=== PATIENT | female | born 1985 | race Hispanic/Latino ===

== ENCOUNTER 2017-11-06 09:46 | Emergency (ER) | payer BC ==
[2017-11-06 10:27] VITALS: RESP 18; TEMP 98.8; O2SAT 99
--- NOTE | 2017-11-06 10:29 | ED PDOC ---
HPI: Abdomen Time Seen by Provider: 11/06/17 10:10 Chief Complaint (Nursing): Abdominal Pain History Per: Patient History/Exam Limitations: no limitations Onset/Duration Of Symptoms: Days (x last night) Current Symptoms Are (Timing): Still Present Additional Complaint(s): 32-year-old female (G1-P0 at 15 weeks) presents to ED complaining of light spotting last night seen on wiping. Pt reports this morning she noticed scant brown discharge. (-) abdominal cramping, (-) fever. PMD: Gosia : 1 Para: 0 Past Medical History Reviewed: Historical Data, Nursing Documentation, Vital Signs Vital Signs: Last Vital Signs Temp 98.8 F 11/06/17 10:24 Pulse 74 11/06/17 12:49 Resp 18 11/06/17 12:49 BP 122/70 11/06/17 12:49 Pulse Ox 99 11/06/17 12:50 - Medical History PMH: No Chronic Diseases - Surgical History Other surgeries: LEEP procedure - Family History Family History: States: Unknown Family Hx - Social History Current smoker - smoking cessation education provided: No Alcohol: Social Drugs: Denies - Allergies Allergies/Adverse Reactions: Allergies Allergy/AdvReac Type Severity Reaction Status Date / Time amoxicillin Allergy RASH Verified 11/06/17 10:23 Penicillins Allergy RASH Verified 11/06/17 10:23 Review of Systems ROS Statement: Except As Marked, All Systems Reviewed And Found Negative Constitutional: Negative for: Fever Gastrointestinal: Negative for: Other (abdominal cramping) Genitourinary Female: Positive for: Vaginal Discharge (Scant Brown) Physical Exam - Reviewed Nursing Documentation Reviewed: Yes Vital Signs Reviewed: Yes - Physical Exam Appears: Positive for: No Acute Distress Cardiovascular/Chest: Positive for: Regular Rate, Rhythm Respiratory: Positive for: Normal Breath Sounds. Negative for: Respiratory Distress Gastrointestinal/Abdominal: Positive for: Normal Exam. Negative for: Tenderness - Laboratory Results Urine POC: Positive - ECG O2 Sat by Pulse Oximetry: 99 (RA) Pulse Ox Interpretation: Normal Medical Decision Making Medical Decision Making: Impression: Vaginal Spotting (2nd Trimester) Time: 10:29 Plan: - ED Urine - ED Urine Dipstick - UA - OB , Limited Ultrasound Time: 12:22 OB , Limited Ultrasound FINDINGS: UTERUS: Placenta: Posterior Presentation: Breech BPD: 3.3 cm compatible with estimated gestational age of 16 weeks, 2 days HC: 11.8 cm compatible with estimated gestational age of 15 weeks, 6 days HC: 11 cm compatible with estimated gestational age of 16 weeks, 6 days FL: 2.3 cm compatible with estimated gestational age is 17 weeks, 3 days Heart rate: 143 bpm. age (Ultrasound estimated): 16 weeks, 4 days Michaela-gestational hemorrhage: None. Date of delivery (Ultrasound estimated) : 04/19/2018 CERVIX: Measures 5.0 cm. Long and closed. No cervical abnormality seen. RIGHT OVARY: Not visualized LEFT OVARY: Not visualized FREE FLUID: None. OTHER FINDINGS: None. IMPRESSION: Single viable intrauterine gestation with average ultrasound age of 16 weeks, 4 days. heart rate 143 beats per minute. Cervix long and closed. 12:44 ED Provider discussed case with Dr. Elise (PMD), agrees with discharge home. Upon provider evaluation patient is medically stable, and requires no further treatment in the ED at this time. Patient will be discharged. Counseling was provided and all questions were answered regarding diagnosis. There is agreement to discharge plan. Return if symptoms persist or worsen. Scribe Attestation: Documented by Enmanuel Chiu, acting as a scribe for Vivian Zamarripa MD. Provider Scribe Attestation: All medical record entries made by the Scribe were at my direction and personally dictated by me. I have reviewed the chart and agree that the record accurately reflects my personal performance of the history, physical exam, medical decision making, and the department course for this patient. I have also personally directed, reviewed, and agree with the discharge instructions and disposition. Disposition - Clinical Impression Clinical Impression: Threatened in second trimester - Patient ED Disposition Is Patient to be Admitted: No - Disposition Referrals: Arie Elise DO [Staff Provider] - Disposition: Routine/Home Disposition Time: 12:48 Condition: GOOD Instructions: Bleeding With Forms: [facility] ([employer])
[2017-11-06 10:54] LABS: SQUAMOUS EPITHIAL 2 /hpf (0-5); URINE BACTERIA RARE (<OCC); URINE BILIRUBIN NEGATIVE (NEGATIVE); URINE BLOOD NEGATIVE (NEGATIVE); URINE CLARITY SLIGHTY-CLOUDY (Clear); URINE COLOR STRAW (YELLOW); URINE GLUCOSE (UA) NEG (Normal); URINE LEUKOCYTE ESTERASE NEG Leu/uL (Negative); URINE PROTEIN NEGATIVE (NEGATIVE); URINE UROBILINOGEN 0.2-1.0 mg/dL (0.2-1.0)
--- NOTE | 2017-11-06 12:24 | US ---
PROCEDURE: OB Pelvic Ultrasound HISTORY: Vag spotting LMP: 07/23/2017 COMPARISON: None available. FINDINGS: UTERUS: Placenta: Posterior Presentation: Breech BPD: 3.3 cm compatible with estimated gestational age of 16 weeks, 2 days HC: 11.8 cm compatible with estimated gestational age of 15 weeks, 6 days HC: 11 cm compatible with estimated gestational age of 16 weeks, 6 days FL: 2.3 cm compatible with estimated gestational age is 17 weeks, 3 days Heart rate: 143 bpm. age (Ultrasound estimated): 16 weeks, 4 days Michaela-gestational hemorrhage: None. Date of delivery (Ultrasound estimated) : 04/19/2018 CERVIX: Measures 5.0 cm. Long and closed. No cervical abnormality seen. RIGHT OVARY: Not visualized LEFT OVARY: Not visualized FREE FLUID: None. OTHER FINDINGS: None. IMPRESSION: Single viable intrauterine gestation with average ultrasound age of 16 weeks, 4 days. heart rate 143 beats per minute. Cervix long and closed.
[2017-11-06 13:22] VITALS: BP 122/70; PULSE 74
== END 2017-11-06 12:49 | disposition home or self-care (01) ==
LOC: H.ER 09:46
DX: O20.0 Threatened abortion (principal); Z3A.16 16 weeks gestation of pregnancy; Z88.0 Allergy status to penicillin

== ENCOUNTER 2018-04-28 07:13 | Inpatient (IN) | payer BC ==
[2018-04-28 07:49] VITALS: BMI 26.1
[2018-04-28] MEDS ORDERED: Lactated Ringer's 1,000 ML IV SCH (08:30)
[2018-04-28] MEDS ORDERED: Oxytocin 30 UNIT 30 UNITS/500 ML BAG IV ONE (08:47)
[2018-04-28] MEDS ORDERED: OXYTOCIN/0.9 % NS 20 UNIT/1,000 ML BAG IV SCH (09:00)
[2018-04-28 09:04] LABS: HEMOGLOBIN 11.9 g/dL (12.0-16.0); MEAN CELL VOLUME 89.7 fl (81.0-99.0); MEAN CORPUSCULAR HEMOGLOBIN 30.2 pg (27.0-31.0); MEAN CORPUSCULAR HGB CONC 33.6 g/dL (33.0-37.0); RBC 3.93 Mil/uL (3.80-5.20); RED CELL DISTRIBUTION WIDTH 13.7 % (11.5-14.5); WHITE BLOOD COUNT 15.8 K/uL (4.8-10.8)
[2018-04-28] MEDS: Lactated Ringer's 2,000 ML IV ONE (09:29)
[2018-04-28] MEDS ORDERED: Fentanyl/Bupivacaine HCl 250 ML EPI ONE (09:30)
[2018-04-28] MEDS ORDERED: Benzocaine/Menthol SPRAY TOP PRN ×2 (18:26→18:37)
[2018-04-28] MEDS ORDERED: Oxycodone/Acetaminophen 5/325 mg Tab PO PRN ×2 (18:26→18:37)
[2018-04-29 08:29] LABS: BASO # 0.1 K/uL (0.0-0.2); BASO % 0.4 % (0.0-2.0); EOS % 0.3 % (0.0-4.0); HEMOGLOBIN 9.4 g/dL (12.0-16.0); LYMPH # 2.2 K/uL (1.0-4.3); LYMPH % 15.6 % (20.0-40.0); MEAN CELL VOLUME 90.5 fl (81.0-99.0); MEAN CORPUSCULAR HEMOGLOBIN 30.8 pg (27.0-31.0); MEAN CORPUSCULAR HGB CONC 34.1 g/dL (33.0-37.0); MEAN PLATELET VOLUME 8.6 fl (7.2-11.7); MONO # 0.8 K/uL (0.0-0.8); MONO % 5.8 % (0.0-10.0); NEUT # 10.9 K/uL (1.8-7.0); NEUT % 77.9 % (50.0-75.0); RBC 3.06 Mil/uL (3.80-5.20); RED CELL DISTRIBUTION WIDTH 13.6 % (11.5-14.5); WHITE BLOOD COUNT 14.1 K/uL (4.8-10.8)
--- NOTE | 2018-04-29 10:09 | OBDS ---
DELIVERY PERSONNEL Delivery Doctor: Luiza Stinson MD [employer] Technician: Jenae Denis RN / shailesh leahy rn Anesthesiologist: Ava Ferreira MD MATERNAL INFORMATION Delivery Anesthesia: Epidural Medications in Delivery: pitocin Estimated Blood Loss (ml): 300 Placenta Cultured: No Maternal Complications: None Provider Comments: Normal spontaneous vaginal delivery. Patient delivered viable female with Apgars of 9 and 9 at one and 5 minutes respectively. I nfant delivered via AREN position. Placenta delivered spontaneously. Laceration repaired, as above. Ut erus firm and appropriately hemostatic following delivery. No complications. Estimated blood loss 300 mL. Patient tolerated delivery and repair well. LABOR SUMMARY EDC: 04/29/2018 00:00 No. Babies in Womb: 1 Attempted: No Labor Anesthesia: Epidural LABOR INFORMATION Reason for Induction: Not Applicable Onset of Labor: 04/28/2018 04:00 Complete Dilatation: 04/28/2018 14:40 Oxytocin: N/A Group B Beta Strep: Negative Antibiotics # of Doses: 0 Antibiotics Time of Last Dose: 0 Steroids Given: None Reason Steroids Not Administered: Not Applicable MEMBRANES Membranes Rupture Method: Spontaneous Rupture of Membranes: 04/28/2018 14:00 Length of Rupture (hrs): 1.27 Amniotic Fluid Color: Light Meconium Amniotic Fluid Amount: Moderate Amniotic Fluid Odor: Normal STAGES OF LABOR Stage 1 hrs: 10 Stage 1 min: 40 Stage 2 hrs: 0 Stage 2 min: 36 Stage 3 hrs: 0 Stage 3 min: 4 Total Time in Labor hrs: 11 Total Time in Labor min: 20 VAGINAL DELIVERY Episiotomy: None Laceration Extension: Second Degree Laceration Type: Perineal; Periurethral Laceration Repair: Yes Laceration Repair Note: Second-degree midline peroneal laceration. First degree bilateral periurethr al lacerations. Area was infiltrated with 1% lidocaine. Lacerations repaired with 2.0 repeated withou t complication. Patient tolerated repair well. Initial Vag Sponge Count: 10 Final Vag Sponge Count: 10 Initial Vag Sharps Count: 1 Final Vag Sharps Count: 1 Sponge Count Correct: Yes Sharps Count Correct: Yes BABY A INFORMATION Delivery Date/Time: 04/28/2018 15:16 Method of Delivery: Vaginal Born in Route : No : N/A Forceps: N/A Vacuum Extraction: N/A Shoulder Dystocia : No SHOULDER DYSTOCIA BABY A Infant Delivery Date/Time: 04/28/2018 15:16 PRESENTATION/POSITION BABY A Presentation: Cephalic Cephalic Presentation: Vertex Vertex Position: Left Occipital Anterior Breech Presentation: N/A PLACENTA INFORMATION BABY A Placenta Delivery Time : 04/28/2018 15:20 Placenta Method of Delivery: Expressed Placenta Status: Delivered SCORES BABY A Heart Rate 1 min: >100 bpm Resp Effort 1 min: Good Cry Reflex Irritability 1 min: Cough or Sneeze or Pulls Away Muscle Tone 1 min: Active Motion Color 1 min: Body [place], Extremities Blue SCORE 1 MIN: 9 Heart Rate 5 min: >100 bpm Resp Effort 5 min: Good Cry Reflex Irritability 5 min: Cough or Sneeze or Pulls Away Muscle Tone 5 min: Active Motion Color 5 min: Body [place], Extremities Blue SCORE 5 MIN: 9 INFORMATION BABY A Gestational Age at Delivery: 39.6 Gestational Status: Term Infant Outcome : Liveborn Infant Condition : Stable Infant Sex: Female IDENTIFICATION/MEDS BABY A ID Band Number: [id number] ID Band Location: Left Leg; Left Arm WEIGHT/LENGTH BABY A Infant Birthweight (gms): 3725 Infant Weight (lb): 8 Weight (oz): 3 CORD INFORMATION BABY A No. Cord Vessels: 3 Nuchal Cord : N/A Nuchal Cord Other: 0 True Knot: 0 Cord Blood Taken: Yes Banking/Donate Info: n/a Suction: Mouth; Nose ASSESSMENT BABY A Complications: None Physical Findings at Delivery: Within Normal Limits Respirations: Appears Normal Care By: yolis ragland rnc / johan lopez rn Transferred To: Remains with Mother
--- NOTE | 2018-04-29 10:17 | OBDS ---
DELIVERY PERSONNEL Delivery Doctor: Luiza Stinson MD Pet Ambassador: Jenae Denis RN / shailesh leahy rn Anesthesiologist: Ava Ferreira MD MATERNAL INFORMATION Delivery Anesthesia: Epidural Medications in Delivery: pitocin Estimated Blood Loss (ml): 300 Placenta Cultured: No Maternal Complications: None Provider Comments: Normal spontaneous vaginal delivery. Patient delivered viable female with Apgars of 9 and 9 at one and 5 minutes respectively. I nfant delivered via AREN position. Placenta delivered spontaneously. Laceration repaired, as above. Ut erus firm and appropriately hemostatic following delivery. No complications. Estimated blood loss 300 mL. Patient tolerated delivery and repair well. LABOR SUMMARY EDC: 04/29/2018 00:00 No. Babies in Womb: 1 Attempted: No Labor Anesthesia: Epidural LABOR INFORMATION Reason for Induction: Not Applicable Onset of Labor: 04/28/2018 04:00 Complete Dilatation: 04/28/2018 14:40 Oxytocin: N/A Group B Beta Strep: Negative Group B Beta Strep: Negative Antibiotics # of Doses: 0 Antibiotics Time of Last Dose: 0 Steroids Given: None Reason Steroids Not Administered: Not Applicable MEMBRANES Membranes Rupture Method: Spontaneous Membranes Rupture Method: Spontaneous Membranes Rupture Method: Spontaneous Membranes Rupture Method: Spontaneous Membranes Rupture Method: Spontaneous Membranes Rupture Method: Spontaneous Membranes Rupture Method: Spontaneous Membranes Rupture Method: Spontaneous Rupture of Membranes: 04/28/2018 14:00 Rupture of Membranes: 04/28/2018 14:00 Rupture of Membranes: 04/28/2018 14:00 Rupture of Membranes: 04/28/2018 14:00 Rupture of Membranes: 04/28/2018 14:00 Rupture of Membranes: 04/28/2018 14:00 Rupture of Membranes: 04/28/2018 14:00 Rupture of Membranes: 04/28/2018 14:00 Length of Rupture (hrs): 1.27 Length of Rupture (hrs): 1.27 Length of Rupture (hrs): 1.27 Length of Rupture (hrs): 1.27 Length of Rupture (hrs): 1.27 Length of Rupture (hrs): 1.27 Length of Rupture (hrs): 1.27 Length of Rupture (hrs): 1.27 Amniotic Fluid Color: Light Meconium Amniotic Fluid Color: Light Meconium Amniotic Fluid Color: Light Meconium Amniotic Fluid Color: Light Meconium Amniotic Fluid Color: Light Meconium Amniotic Fluid Color: Light Meconium Amniotic Fluid Color: Light Meconium Amniotic Fluid Color: Light Meconium Amniotic Fluid Amount: Moderate Amniotic Fluid Amount: Moderate Amniotic Fluid Amount: Moderate Amniotic Fluid Amount: Moderate Amniotic Fluid Amount: Moderate Amniotic Fluid Amount: Moderate Amniotic Fluid Amount: Moderate Amniotic Fluid Amount: Moderate Amniotic Fluid Odor: Normal Amniotic Fluid Odor: Normal Amniotic Fluid Odor: Normal Amniotic Fluid Odor: Normal Amniotic Fluid Odor: Normal Amniotic Fluid Odor: Normal Amniotic Fluid Odor: Normal Amniotic Fluid Odor: Normal STAGES OF LABOR Stage 1 hrs: 10 Stage 1 min: 40 Stage 2 hrs: 0 Stage 2 min: 36 Stage 3 hrs: 0 Stage 3 min: 4 Total Time in Labor hrs: 11 Total Time in Labor min: 20 VAGINAL DELIVERY Episiotomy: None Laceration Extension: Second Degree Laceration Type: Perineal; Periurethral Laceration Repair: Yes Laceration Repair Note: Second-degree midline peroneal laceration. First degree bilateral periurethr al lacerations. Area was infiltrated with 1% lidocaine. Lacerations repaired with 2.0 repeated withou t complication. Patient tolerated repair well. Initial Vag Sponge Count: 10 Final Vag Sponge Count: 10 Initial Vag Sharps Count: 1 Final Vag Sharps Count: 1 Sponge Count Correct: Yes Sharps Count Correct: Yes BABY A INFORMATION Infant Delivery Date/Time: 04/28/2018 15:16 Method of Delivery: Vaginal Born in Route : No : N/A Forceps: N/A Vacuum Extraction: N/A Shoulder Dystocia : No SHOULDER DYSTOCIA BABY A Infant Delivery Date/Time: 04/28/2018 15:16 PRESENTATION/POSITION BABY A Presentation: Cephalic Cephalic Presentation: Vertex Vertex Position: Left Occipital Anterior Breech Presentation: N/A PLACENTA INFORMATION BABY A Placenta Delivery Time : 04/28/2018 15:20 Placenta Method of Delivery: Expressed Placenta Status: Delivered SCORES BABY A Heart Rate 1 min: >100 bpm Resp Effort 1 min: Good Cry Reflex Irritability 1 min: Cough or Sneeze or Pulls Away Muscle Tone 1 min: Active Motion Color 1 min: Body [place], Extremities Blue SCORE 1 MIN: 9 Heart Rate 5 min: >100 bpm Resp Effort 5 min: Good Cry Reflex Irritability 5 min: Cough or Sneeze or Pulls Away Muscle Tone 5 min: Active Motion Color 5 min: Body [place], Extremities Blue SCORE 5 MIN: 9 INFORMATION BABY A Gestational Age at Delivery: 39.6 Gestational Status: Term Outcome : Liveborn Infant Condition : Stable Sex: Female IDENTIFICATION/MEDS BABY A ID Band Number: [id number] ID Band Location: Left Leg; Left Arm WEIGHT/LENGTH BABY A Infant Birthweight (gms): 3725 Weight (lb): 8 Infant Weight (oz): 3 CORD INFORMATION BABY A No. Cord Vessels: 3 Nuchal Cord : N/A Nuchal Cord Other: 0 True Knot: 0 Cord Blood Taken: Yes Banking/Donate Info: n/a Suction: Mouth; Nose ASSESSMENT BABY A Complications: None Physical Findings at Delivery: Within Normal Limits Infant Respirations: Appears Normal Infant Care By: yolis ragland / johan lopez rn Transferred To: Remains with Mother
--- NOTE | 2018-04-29 13:05 | OBPPN ---
Datetime: 04/29/2018 13:03 PP Pain Prov: Within normal limits PP Nausea Prov: Denies PP Flatus Prov: Yes PP Breasts Prov: Not Done PP Heart Prov: Not Done PP Lungs Prov: Not Done PP Abdomen/Uterus Prov: Normal PP Lochia Prov: Not Done PP Vulva/Perineum Prov: Not Done PP CVA Tenderness Prov: Not Done PP Extremities Prov: Normal PP Progress Prov: Normal PP Impression Prov: Normal progression PP Plan Prov: Continue present management PP Progress Note Prov: Patient doing well breast-feeding ambulating tolerating diet and voiding with out difficulty reports minimal lochia Motrin as needed, anticipate discharge in a.m. Vital Signs Provider PP: Reviewed
--- NOTE | 2018-04-30 09:43 | OBDCSUM ---
Datetime: 04/30/2018 09:41 Discharged to, Provider: Home Follow up at, Provider: 6 wks Disch Instr Activity: Normal activity Disch Instr Diet: Regular Discharge Instructions, Provider: Routine instructions given Discharge Diagnosis, Provider: Term Delivered Discharge Time: 04/30/2018 09:41 Follow up in weeks, Provider: wendy OB Disch Referrals: None Contraception discussed, Prov: Yes
--- NOTE | 2018-04-30 09:43 | OBPPN ---
Datetime: 04/30/2018 09:39 PP Pain Prov: Within normal limits PP Nausea Prov: Denies PP Flatus Prov: Yes PP Breasts Prov: Normal PP Heart Prov: Normal PP Lungs Prov: Normal PP Abdomen/Uterus Prov: Normal PP Lochia Prov: Normal PP Vulva/Perineum Prov: Normal PP CVA Tenderness Prov: Normal PP Extremities Prov: Normal PP Impression Prov: Normal progression PP Plan Prov: Discharge PP Progress Note Prov: Patient denies CP, N/V, SOB, tolerating PO diet, abdominal pain tolerable wit h meds, mild lochia, ambulating/voiding well A/P PPD #1 1. discharge pt home 2. Discharge instructions reviewed Vital Signs Provider PP: Reviewed; Within Normal Limits
[2018-04-30 19:06] VITALS: BP 123/65; PULSE 86; RESP 20; TEMP 98
== END 2018-04-30 15:00 | disposition home or self-care (01) | DRG 807 ==
LOC: H.EROB2 07:13 → H.L&D 08:21 → H.OB/GYN 18:21
PROVIDERS: ADMIT Obstetrics & Gynecology; ATTEND Obstetrics & Gynecology
PROC: 10E0XZZ Delivery of Products of Conception, External Approach (ICD-10-PCS; principal; 2018-04-28)
PROC: 0KQM0ZZ Repair Perineum Muscle, Open Approach (ICD-10-PCS; 2018-04-28)
PROC: 4A1HXCZ Monitoring of Products of Conception, Cardiac Rate, External Approach (ICD-10-PCS; 2018-04-28)
DX: O70.1 Second degree perineal laceration during delivery (principal); Z37.0 Single live birth; Z3A.39 39 weeks gestation of pregnancy